=== PATIENT | male | born 1985 | race Caucasian/White ===

== ENCOUNTER 2025-08-17 10:51 | Emergency (ER) | payer SELFPAY ==
[2025-08-17] VITALS (18 sets, daily range): BP systolic 100–153; BP diastolic 61–90; PULSE 72–121; RESP 18–20; TEMP 37.1; O2SAT 93–98; BMI 29.7
--- NOTE | 2025-08-17 11:04 | DI.RAD.S_ITS ---
PROCEDURE: XR FOREARM LT 2V INDICATIONS: chainsaw vs arm TECHNIQUE: 2 views of the forearm were acquired. COMPARISON: None. FINDINGS: Bones: No fractures or dislocations. No suspicious bony lesions. Soft tissues: No suspicious soft tissue calcifications or masses. No radiodense foreign body. IMPRESSION: No acute bony abnormality. Dictated by: Malena Cortes MD, PhD on 08/17/2025 at 11:19 Approved by: Malena Cortes MD, PhD on 08/17/2025 at 11:19
--- NOTE | 2025-08-17 11:21 | ED.UPPEXIN ---
HPI - Extremity Injury (Upper) General Chief Complaint: Extremity Injury, Upper Stated Complaint: Cut left arm bad Time Seen by Provider: 08/17/25 10:59 Source: patient Mode of arrival: Ambulatory History of Present Illness HPI narrative: Patient is a 39-year-old Ecuadorean-speaking male presenting to day with left arm injury. He was using a chain saw at his house cutting a tree when it slipped and cut his left forearm. He put a tourniquet on his arm to stop the bleeding. It was removed he is able to move his hands and wrist but does have pulsating blood. Release Of Information Specialist was used for evaluation Related Data Previous Rx's ?Medication ?Instructions ?Recorded cephalexin 500 mg capsule 500 mg PO TID #21 caps 08/17/25 Allergies Allergy/AdvReac Type Severity Reaction Status Date / Time No Known Drug Allergies Allergy Verified 08/17/25 11:03 Patient History Social History Smoking Status: Never smoker Smoking Status: Never smoker Exam Initial Vital Signs Initial Vital Signs: Vital Signs Temperature 98.7 F 08/17/25 11:03 Pulse Rate 111 H 08/17/25 11:03 Respiratory Rate 20 08/17/25 11:03 Blood Pressure 153/90 H 08/17/25 11:03 Pulse Oximetry 97 08/17/25 11:03 Oxygen Delivery Method Room Air 08/17/25 11:03 GENERAL: Well-appearing, well-nourished and in no acute distress. CARDIOVASCULAR: peripheral pulses in tact, cap refill <2 sec RESPIRATORY: No respiratory distress, speaks in full sentences without difficulty EXTREMITIES: Normal range of motion, no clubbing or edema. Neurovascularly intact Left hand good flexion and extension into his wrist and in all of his fingers. Radial pulse is palpable ulnar pulse is seen on ultrasound. NEUROLOGICAL: Cranial nerves II through XII grossly intact. Normal gait and speech. SKIN: Left forearm on anterior side 6 cm laceration. Does not involve the muscle. Procedures Laceration Repair Laceration 1: Site: upper extremity Side (If applicable): left Size (cm): 6 Description: linear Depth: simple, single layer and involves muscle layer Local Anesthetic: lidocaine 1% and with epi Amount of anesthesia used (mL): 10 Pre-repair: wound explored and irrigated extensively Skin layer closed with: nylon Skin layer suture size: 4-0 Number of sutures: 6 Technique: simple, interrupted Course Orders Ordered: ED Orders 08/17/25 11:04 XR forearm LT 2V Stat 08/17/25 11:24 CBC Auto Diff [Complete Blood Count AUTO DIFF] Stat Discontinued Medications Bacitracin (Bacitracin Oint 0.9 Gm Pckt) 1 applic TOP NOW ONE Stop: 08/17/25 13:36 Last Admin: 08/17/25 13:40 Dose: 1 applic Documented By: RENATO Diphtheria/Tetanus/Acell Pertussis (Tet,Diph,Pertuss(Acell),Vac/Pf 0.5 Ml Syringe) 0.5 ml IM .ONCE ONE Stop: 08/17/25 11:51 Last Admin: 08/17/25 12:17 Dose: 0.5 ml Documented By: RENATO Cefazolin Sodium 1 gm/ Sodium (Chloride) 100 mls @ 200 mls/hr IV NOW ONE Stop: 08/17/25 12:20 Last Infusion: 08/17/25 12:48 Dose: Infused Documented By: Admin: 08/17/25 12:16 Dose: 200 mls/hr Documented By: RENATO Lidocaine HCl (Lidocaine 1% 20 Ml) 20 ml INJ INTRA-OP ONE Stop: 08/17/25 13:21 Last Admin: 08/17/25 13:22 Dose: Not Given Documented By: CATHY Lidocaine/Epinephrine (Lidocaine 1% W/Epi 10ml) 1 ml SUBCUT NOW ONE Stop: 08/17/25 11:23 Last Admin: 08/17/25 11:44 Dose: 1 ml Documented By: RENATO(2) Lidocaine/Epinephrine (Lidocaine 1% W/Epi 10ml) 4 ml INJ INTRA-OP ONE Stop: 08/17/25 13:22 Last Admin: 08/17/25 13:39 Dose: 4 ml Documented By: RENATO Morphine Sulfate (Morphine 2 Mg/Ml Inj) 2 mg IV NOW ONE Stop: 08/17/25 11:41 Last Admin: 08/17/25 11:44 Dose: 2 mg Documented By: RENATO(2) Vital Signs Vital signs: Vital Signs - 8 hr 08/17/25 11:03 08/17/25 11:03 08/17/25 11:04 Temperature 98.7 F Pulse Rate 111 H 121 H Pulse Rate [Left Radial] Respiratory Rate 20 Blood Pressure 153/90 H 153/90 H Pulse Oximetry 97 95 Oxygen Delivery Method Room Air 08/17/25 11:04 08/17/25 11:08 08/17/25 11:29 Temperature Pulse Rate 115 H Pulse Rate [Left Radial] 100 H Respiratory Rate Blood Pressure 102/61 Pulse Oximetry 95 Oxygen Delivery Method 08/17/25 11:29 08/17/25 11:30 08/17/25 11:30 Temperature Pulse Rate 72 73 Pulse Rate [Left Radial] Respiratory Rate Blood Pressure 103/65 Pulse Oximetry 96 94 Oxygen Delivery Method 08/17/25 11:47 08/17/25 11:47 08/17/25 12:00 Temperature Pulse Rate 76 Pulse Rate [Left Radial] Respiratory Rate Blood Pressure 100/63 105/69 Pulse Oximetry 97 Oxygen Delivery Method 08/17/25 12:00 08/17/25 12:15 08/17/25 12:15 Temperature Pulse Rate 78 81 Pulse Rate [Left Radial] Respiratory Rate Blood Pressure 110/76 Pulse Oximetry 93 95 Oxygen Delivery Method 08/17/25 12:30 08/17/25 12:30 08/17/25 12:45 Temperature Pulse Rate 93 H Pulse Rate [Left Radial] Respiratory Rate Blood Pressure 115/78 113/79 Pulse Oximetry 96 Oxygen Delivery Method 08/17/25 12:45 08/17/25 13:00 08/17/25 13:00 Temperature Pulse Rate 89 87 Pulse Rate [Left Radial] Respiratory Rate Blood Pressure 117/76 Pulse Oximetry 97 97 Oxygen Delivery Method 08/17/25 13:15 08/17/25 13:15 08/17/25 13:30 Temperature Pulse Rate 82 Pulse Rate [Left Radial] Respiratory Rate Blood Pressure 112/75 111/74 Pulse Oximetry 96 Oxygen Delivery Method 08/17/25 13:30 08/17/25 13:45 08/17/25 13:45 Temperature Pulse Rate 88 80 Pulse Rate [Left Radial] Respiratory Rate Blood Pressure 108/73 Pulse Oximetry 96 98 Oxygen Delivery Method 08/17/25 13:49 08/17/25 14:05 08/17/25 14:06 Temperature Pulse Rate 85 76 Pulse Rate [Left Radial] Respiratory Rate Blood Pressure 113/68 Pulse Oximetry 95 97 Oxygen Delivery Method 08/17/25 14:30 Temperature Pulse Rate 77 Pulse Rate [Left Radial] Respiratory Rate 18 Blood Pressure 152/75 H Pulse Oximetry 97 Oxygen Delivery Method MDM - Extremity Injury (Upper) Lab Data 08/17/25 11:24 Labs: Lab Results 08/17/25 Range/Units 11:24 WBC 7.7 (4.5-11.0) X10^3/uL RBC 5.37 (4.5-5.9) X10^6/uL Hgb 15.6 (13.5-17.5) g/dL Hct 45.9 (41-53) % MCV 85.4 (80-100) fL MCH 29.1 (26-34) PG MCHC 34.1 (30-36) % RDW 14.1 (11.6-14.8) % Plt Count 266 (150-400) X10^3/uL Neut % (Auto) 59.8 (50-75) % Lymph % (Auto) 32.1 (25-40) % [place] % (Auto) 5.8 (3-14) % Eos % (Auto) 1.7 L (2-4) % Baso % (Auto) 0.6 (0-2) % Neut # (Auto) 4600 (0093-2476) /uL Lymph # (Auto) 2500 (0055-9906) /uL [place] # (Auto) 500 (0-900) /uL Eos # (Auto) 100 (0-450) /uL Baso # (Auto) 0 (0-100) /uL Imaging Data Extremity x-ray #1: Radiologist's Impression: PROCEDURE: XR FOREARM LT 2V INDICATIONS: chainsaw vs arm TECHNIQUE: 2 views of the forearm were acquired. COMPARISON: None. FINDINGS: Bones: No fractures or dislocations. No suspicious bony lesions. Soft tissues: No suspicious soft tissue calcifications or masses. No radiodense foreign body. IMPRESSION: No acute bony abnormality. Dictated by: Malena Cortes MD, PhD on 08/17/2025 at 11:19 [facility] Narrative Medical decision making narrative: Patient healthy 39-year-old male presenting today with a chain saw injury to forearm. It does not involve the muscle layer but there does not to be any like nerve or tendon damage. He does have a pulsatile bleed and unable to palpate ulnar pulse however was found on ultrasound. Orthopedics Dr. Harding at bedside to evaluate patient. At this time no need for any further orthopedic intervention can follow up outpatient CBC is within normal limit Patient is given morphine Ancef and tetanus in the ED Upon discharge patient had a vasovagal reaction and slumped to the ground. He was a little diaphoretic nauseous but awake alert and oriented. Blood pressure was actually 113/68. He reported that he was hungry You was given some andrew leon and some food. Monitored for a bit longer overall started feeling better. I did discuss with him that he needs to elevate and ice his arm. Bleeding is well controlled at this time blood pressure has remained stable I do not suspect significant blood loss at this time. Forearm is also soft, able to move her fingers Discharge Plan Departure Patient Disposition: Home Clinical Impression: Forearm laceration Qualifiers: Encounter type: initial encounter Laterality: left Qualified Code(s): S51.812A - Laceration without foreign body of left forearm, initial encounter Instructions: DI for Laceration Repair Activity Restrictions/Additional Instructions: You have a left forearm laceration Have sutures removed in about 7-10 days Put antibiotic ointment on it due to 3 times a day Take antibiotics 3 times a day for 7 days Return to ER if you should have any weakness numbness tingling so willing or pain Tener suturas eliminadas en 7-10 gardiner Ponga unguento antibiotico 2-3 veces al catrina Mantengalo lmpio y seco con agua y jabon, esta richy para ducharse Llame a Otrapedia para hacer unseguimiento aproximadamente 1 semena Vuelva a la manjeet de emergencias por debilidad enrojecimento o o cualquier sintoma peor Prescriptions: New cephalexin 500 mg capsule 500 mg PO TID Qty: 21 0RF Referrals: [facility] [Provider Group] Anayeli Harding DO [Physician, Orthopedic Surgery] Stand Alone Forms: Patient Portal/API
[2025-08-17 11:35] LABS: Add Manual Diff / Slide Review NO; Hematocrit 45.9 % (41-53); Hemoglobin 15.6 g/dL (13.5-17.5); Lymphocytes Absolute Auto 2500 /uL (1100-4500); Mean Corpuscular HGB Conc 34.1 % (30-36); Mean Corpuscular Hemoglobin 29.1 PG (26-34); Mean Corpuscular Volume 85.4 fL (80-100); Platelet Count 266 X10^3/uL (150-400)
[2025-08-17] MEDS: LIDOCAINE 1% W/EPI 10ML SUBCUT (11:44)
[2025-08-17] MEDS: MORPHINE 2 MG/ML INJ IV (11:44)
[2025-08-17] MEDS: TET,DIPH,PERTUSS(ACELL),VAC/PF 0.5 ML SYRINGE IM (12:17)
--- NOTE | 2025-08-17 12:46 | P.HP_ITS ---
History of Present Illness History of Present Illness Date Patient Seen: 08/17/25 Chief complaint: Cut left arm bad Narrative: 39-year-old right-hand dominant male with left forearm laceration after using a chain saw and cutting his arm. Date of injury 08/17/2025. He denies numbness tingling or paresthesias in his hand. He has not noted that he has had any dysfunction of his fingers. He denies prior injury. He has been given Ancef and tetanus has been updated in the emergency room. Physical exam reveals a well-developed well-nourished 39-year-old in no acute distress Evaluation of his right upper extremity demonstrates that he has a 6 cm laceration over the volar aspect of his forearm. Nylon simple interrupted sutures are in place. His sensation is intact to light touch in the radial, ulnar and median nerve distributions He has 5/5 FDP and FDS to all his fingers. He has 5/5 EDC to all fingers. He has 5/5 flexion at his wrist 5/5 extension in his wrist. His radial pulse is 2+ and an ultrasound was used to identify his ulnar pulse. X-rays obtained of his forearm demonstrate no evidence of fracture, dislocation or foreign body. [facility] Social History Smoking Status: Never smoker Meds Home Medications and Allergies Allergies Allergy/AdvReac Type Severity Reaction Status Date / Time No Known Drug Allergies Allergy Verified 08/17/25 11:03 Exam Vital Signs (past 8 hours): - 08/17/25 11:03 08/17/25 11:03 08/17/25 11:04 Temperature 98.7 F Pulse Rate 111 H 121 H Pulse Rate [Left Radial] Respiratory Rate 20 Blood Pressure 153/90 H 153/90 H Pulse Oximetry 97 95 Oxygen Delivery Method Room Air 08/17/25 11:04 08/17/25 11:08 08/17/25 11:29 Temperature Pulse Rate 115 H Pulse Rate [Left Radial] 100 H Respiratory Rate Blood Pressure 102/61 Pulse Oximetry 95 Oxygen Delivery Method 08/17/25 11:29 08/17/25 11:30 08/17/25 11:30 Temperature Pulse Rate 72 73 Pulse Rate [Left Radial] Respiratory Rate Blood Pressure 103/65 Pulse Oximetry 96 94 Oxygen Delivery Method 08/17/25 11:47 08/17/25 11:47 08/17/25 12:00 Temperature Pulse Rate 76 Pulse Rate [Left Radial] Respiratory Rate Blood Pressure 100/63 105/69 Pulse Oximetry 97 Oxygen Delivery Method 08/17/25 12:00 08/17/25 12:15 08/17/25 12:15 Temperature Pulse Rate 78 81 Pulse Rate [Left Radial] Respiratory Rate Blood Pressure 110/76 Pulse Oximetry 93 95 Oxygen Delivery Method 08/17/25 12:30 08/17/25 12:30 Temperature Pulse Rate 93 H Pulse Rate [Left Radial] Respiratory Rate Blood Pressure 115/78 Pulse Oximetry 96 Oxygen Delivery Method Oxygen Delivery Method Room Air Objective Labs 08/17/25 11:24 Labs: Laboratory Results - last 24 hr 08/17/25 11:24 WBC 7.7 RBC 5.37 Hgb 15.6 Hct 45.9 MCV 85.4 MCH 29.1 MCHC 34.1 RDW 14.1 Plt Count 266 Neut % (Auto) 59.8 Lymph % (Auto) 32.1 [place] % (Auto) 5.8 Eos % (Auto) 1.7 L Baso % (Auto) 0.6 Neut # (Auto) 4600 Lymph # (Auto) 2500 [place] # (Auto) 500 Eos # (Auto) 100 Baso # (Auto) 0 Assessment & Plan Assessment and plan (1) Forearm laceration: Qualifiers: Encounter type: initial encounter Laterality: left Qualified Code(s): S51.812A - Laceration without foreign body of left forearm, initial encounter Status: Acute Assessment & Plan narrative: On his physical exam he does not have any neurovascular deficits. There appears to have been no significant tendon injury. In discussion with the ER staff they did not see any tendon lacerations when exploring the wound. The wound was copiously irrigated and will be closed by the ER staff. If he notices it notices any deficits after discharge from the emergency room he should follow up with Orthopedic surgery. Time-Based Coding :: [TOTAL MINUTES] spent with patient and on the chart (including review of chart, obtaining history, exam, reviewing outside data, placing orders, documenting exam and treatment plan, and counseling patient) on [DATE]. [employer] Program Manager Document charge(s): No
[2025-08-17] MEDS: LIDOCAINE 1% W/EPI 10ML 4 ML INJ (13:39)
[2025-08-17] MEDS: BACITRACIN OINT 0.9 GM PCKT 1 APPLIC TOP (13:40)
--- NOTE | 2025-08-17 14:14 | PC.NURSE ---
Provider irrigated and stitched L-forearm wound. Patient tolerated procedure well. Patient was preparing for discharge, sitting on the side of the bed and became lightheaded and fainted. Physician and PA at bedside for eval. Patient having cheese, crackers, peanut butter and gingerale. Will reassess in 15 minutes.
--- NOTE | 2025-08-17 15:00 | PC.NURSE ---
Pt feeling much better. Ambulates with steady gait. Ready for D/C. Patient educated about wound care and returning to ED/urgent care for suture removal in 7-10 days. Motor And Chassis Inspector services used numerous times with this patient to ensure understanding. Patient verbalizes understanding.
== END 2025-08-17 15:04 | disposition home or self-care (01) ==
PROVIDERS: Emergency Provider Emergency Medicine
DX: S51.812A Laceration without foreign body of left forearm, initial encounter (principal); W29.3XXA Contact with powered garden and outdoor hand tools and machinery, initial encounter; Z23 Encounter for immunization
CPT/HCPCS: 12002; 36415; 73090; 85025; 90471; 96365; 96375; 99284; 90715; J0690; J2270

== ENCOUNTER 2025-08-27 15:05 | Emergency (ER) | payer SELFPAY ==
[2025-08-27 15:34] VITALS: BP 151/77; PULSE 87; RESP 16; TEMP 36.6; O2SAT 98; BMI 26.6
--- NOTE | 2025-08-27 15:38 | ED.RECABL ---
HPI - Recheck/Abnormal Lab/Rx General Chief Complaint: Recheck/Abnormal Lab/Rx Stated Complaint: wants stitches out Time Seen by Provider: 08/27/25 15:33 History of Present Illness HPI narrative: Suture removal left forearm. No complications healing nicely Related Data Previous Rx's ?Medication ?Instructions ?Recorded cephalexin 500 mg capsule 500 mg PO TID #21 caps 08/17/25 Allergies Allergy/AdvReac Type Severity Reaction Status Date / Time No Known Drug Allergies Allergy Verified 08/17/25 11:03 Exam Initial Vital Signs Initial Vital Signs: Vital Signs Temperature 97.8 F 08/27/25 15:34 Pulse Rate 87 08/27/25 15:34 Respiratory Rate 16 08/27/25 15:34 Blood Pressure 151/77 H 08/27/25 15:34 Pulse Oximetry 98 08/27/25 15:34 Oxygen Delivery Method Room Air 08/27/25 15:34 Left arm examined, interrupted sutures are removed by nursing staff. No difficulties healing nicely Band-Aid applied he does have mild contusion to the inner portion of his elbow related to his previous injury it is healing nicely as well Course Vital Signs Vital signs: Vital Signs - 8 hr 08/27/25 15:34 Temperature 97.8 F Pulse Rate 87 Respiratory Rate 16 Blood Pressure 151/77 H Pulse Oximetry 98 Oxygen Delivery Method Room Air MDM - Recheck/Abnormal Lab/Rx MDM Narrative Medical decision making narrative: 39-year-old gentleman here for suture removal. Wound is healing nicely, sutures removed, questions are answered, there was no indication for additional workup, antibiotics or further imaging and he is safe for discharge Discharge Plan Departure Patient Disposition: Home Clinical Impression: Encounter for removal of sutures Instructions: DI for Suture Removal Prescriptions: No Action cephalexin 500 mg capsule 500 mg PO TID Qty: 21 0RF Stand Alone Forms: Patient Portal/API
== END 2025-08-27 15:49 | disposition home or self-care (01) ==
PROVIDERS: Emergency Provider Emergency Medicine
CPT/HCPCS: 99281